=== PATIENT | male | born 1980 | race Two or more races ===

== ENCOUNTER 2024-05-30 10:22 | Inpatient (IN) | payer OTHER ==
[~2024-05-30] VITALS: Ht 182.9 cm; Wt 106.6 kg
[~2024-05-30 10:22] MED LIST: IBUPROFEN800 MG PO
[2024-05-30] MEDS ORDERED: RINGERS SOLUTION,LACTATED 1,000 ML IV STA (12:26)
[2024-05-30] MEDS ORDERED: MORPHINE SULFATE 4 MG/ML VIAL IV STA (12:29)
[2024-05-30 13:09] LABS: HEMOGLOBIN 15.5 g/dL (13-16.00); MEAN CORPUSCULAR HEMOGLOBIN 31.7 pg (27.00-32.0); MEAN CORPUSCULAR HGB CONC 35.2 g/dl (32.0-36.0); PLATELET COUNT 383 K/uL (150-450); RED CELL DISTRIBUTION WIDTH 12.7 % (11.5-14.5)
[2024-05-30 14:16] LABS: ALBUMIN 3.4 gm/dL (3.4-5.0); BILIRUBIN TOTAL 0.9 mg/dL (0.3-1.2); BILIRUBIN,CONJUGATED 0.27 mg/dL (0.0-0.2); BILIRUBIN,UNCONJUGATED 0.63 mg/dL (0.0-0.6); CALCIUM 9.2 mg/dL (8.5-10.1); CREATININE SERUM 1.14 mg/dL (0.70-1.30); GFR 70.11; POTASSIUM 3.64 mEq/L (3.5-5.1); TOTAL PROTEIN 8.3 gm/dL (6.4-8.2)
[2024-05-30] MEDS ORDERED: CIPROFLOXACIN IN 5 % DEXTROSE 400 MG/200 ML PIGGYBAG IV ONE (16:20)
[2024-05-30] MEDS ORDERED: METRONIDAZOLE/SODIUM CHLORIDE 500 MG/100 ML PIGGYBACK IV ONE ×2 (16:20→16:45)
[2024-05-30] MEDS ORDERED: CIPROFLOXACIN IN 5 % DEXTROSE 400 MG/200 ML PIGGYBAG IV SCH (17:00)
[2024-05-30] MEDS ORDERED: METROnidazole 500 MG TABLET PO SCH (17:00)
[2024-05-30] MEDS ORDERED: DEXTROSE 5 % AND 0.9 % NACL 1,000 ML IV SCH (17:15)
[2024-05-30] MEDS ORDERED: hydrALAZINE HCL 20 MG VIAL IV PRN (17:30)
[2024-05-30] MEDS ORDERED: ACETAMINOPHEN 500 MG GEL..CAP PO PRN (17:30)
[2024-05-30] MEDS ORDERED: ONDANSETRON HCL 4 MG in 0.9 % SODIUM CHLORIDE 50 ML IV PRN (17:30)
[2024-05-30] MEDS ORDERED: PIPERACILLIN/TAZOBACTAM SODIUM 3.375 GM VIAL IV ONE ×2 (17:39→23:34)
[2024-05-30] MEDS ORDERED: MEPERIDINE HCL 25 MG/ML AMPUL IM SCH (18:00)
[2024-05-30] MEDS ORDERED: PIPERACILLIN/TAZOBACTAM SODIUM 3.375 GM in 0.9 % SODIUM CHLORIDE 100 ML IV SCH (18:00)
[2024-05-30] MEDS ORDERED: FAMOTIDINE/PF 20 MG in 0.9 % SODIUM CHLORIDE 8 ML IV PUSH SCH (21:00)
[2024-05-30 21:51] LABS: PH,URINE 5.5 (5.0-8.0); URINE APPEARANCE Clear; URINE BILIRRUBIN Negative (NEGATIVE); URINE BLOOD Negative; URINE COLOR Yellow; URINE GLUCOSE Negative (NEGATIVE); URINE KETONE Negative (NEGATIVE); URINE LEUKOCYTE Negative; URINE NITRATE Negative; URINE PROTEIN Negative (NEGATIVE)
[2024-05-30 21:55] LABS: URINE BACTERIA 6.2 uL (0.0-1933)
[2024-05-30 22:05] LABS: URINE WBC 1.6 uL (0.0-23.2)
[2024-05-31 00:15] VITALS: BP 116/63; O2SAT 100
[2024-05-31] MEDS ORDERED: PIPERACILLIN/TAZOBACTAM SODIUM 3.375 GM VIAL IV ONE ×2 (05:13→06:59)
[2024-05-31 07:39] LABS: HEMOGLOBIN 14.2 g/dL (13-16.00); MEAN CELL VOLUME 90.2 fL (80.0-100.00); MEAN CORPUSCULAR HGB CONC 35.5 g/dl (32.0-36.0); PLATELET COUNT 346 K/uL (150-450); RED BLOOD COUNT 4.44 M/uL (4.00-6.00); RED CELL DISTRIBUTION WIDTH 12.4 % (11.5-14.5)
[2024-05-31 07:41] LABS: INR 1.18; PARTIAL THROMBOPLASTIN TIME 29.6 SECONDS (22.0-34.0); PROTHROMBIN TIME 12.7 SECONDS (9.0-11.5)
[2024-05-31 07:42] LABS: ALBUMIN 2.9 gm/dL (3.4-5.0); BILIRUBIN TOTAL 0.56 mg/dL (0.3-1.2); BILIRUBIN,CONJUGATED 0.19 mg/dL (0.0-0.2); BILIRUBIN,UNCONJUGATED 0.37 mg/dL (0.0-0.6); CALCIUM 8.3 mg/dL (8.5-10.1); CHOL HDL RATIO 6.5 (0-5.0); CREATININE SERUM 1.11 mg/dL (0.70-1.30); GFR 72.3; GLOBULINA 3.3 G/DL (2.4-3.5); POTASSIUM 3.95 mEq/L (3.5-5.1); TOTAL PROTEIN 6.2 gm/dL (6.4-8.2)
[2024-05-31 07:48] LABS: C-REACTIVE PROTEIN 11.5 MG/DL (0.00-0.29)
[2024-05-31 07:57] LABS: ERYTHROCYTE SEDIMENTATION RATE 90 mm/hr
[2024-05-31 08:18] VITALS: BP 105/73; O2SAT 95
[2024-05-31] MEDS ORDERED: MIDAZOLAM HCL 2 MG/2 ML VIAL IV PUSH NR (11:45)
[2024-05-31] MEDS ORDERED: fentaNYL CITRATE 50 MCG/ML AMPUL IV PUSH NR ×2 (11:45→12:45)
[2024-05-31 16:00] VITALS: BP 123/61; O2SAT 95
[2024-05-31 16:03] VITALS: BP 125/73; O2SAT 98
[2024-05-31 23:55] LABS: PH,URINE 7.5 (5.0-8.0); URINE APPEARANCE Clear; URINE BILIRRUBIN Negative (NEGATIVE); URINE BLOOD Negative; URINE COLOR Yellow; URINE GLUCOSE Negative (NEGATIVE); URINE KETONE Negative (NEGATIVE); URINE LEUKOCYTE Negative; URINE NITRATE Negative; URINE PROTEIN Negative (NEGATIVE)
[2024-06-01] LABS: URINE BACTERIA 0 uL (0.0-1933); URINE CAST 0.15 uL (0.0-1.40); URINE RBC 1.9 uL (0.0-20.8); URINE WBC 0.3 uL (0.0-23.2)
[2024-06-01 00:30] VITALS: BP 106/54; O2SAT 100
[2024-06-01 08:09] VITALS: BP 105/69; O2SAT 95
[2024-06-01] MEDS ORDERED: KETOROLAC TROMETHAMINE 30 MG VIAL IV PRN ×2 (11:00→12:30)
[2024-06-01] MEDS ORDERED: OxyCODONE HCL/APAP UD (PERCOCET) PO PRN (12:00)
[2024-06-01 16:00] VITALS: BP 120/66; O2SAT 96
[2024-06-01] MEDS ORDERED: FAMOTIDINE/PF 20 MG/2 ML VIAL IV SCH (17:00)
[2024-06-01] MEDS ORDERED: 0.9 % SODIUM CHLORIDE 10 ML VIAL IJ ONE (18:33)
[2024-06-02 00:54] VITALS: BP 113/63; O2SAT 100
[2024-06-02 08:00] VITALS: BP 103/64; O2SAT 100
[2024-06-02] MEDS ORDERED: CIPROFLOXACIN IN 5 % DEXTROSE 400 MG/200 ML PIGGYBAG IV SCH (17:00)
[2024-06-02 17:08] VITALS: BP 109/76; O2SAT 98
[2024-06-02] MEDS ORDERED: PIPERACILLIN/TAZOBACTAM SODIUM 3.375 GM in 0.9 % SODIUM CHLORIDE 100 ML IV SCH (18:00)
[2024-06-03] VITALS: BP 92/66; O2SAT 96
[2024-06-03 08:00] VITALS: BP 97/66; O2SAT 97
[2024-06-03 08:29] LABS: HEMATOCRIT 40.6 % (39.0-48.0); HEMOGLOBIN 14.5 g/dL (13-16.00); MEAN CELL VOLUME 89.1 fL (80.0-100.00); MEAN CORPUSCULAR HEMOGLOBIN 31.8 pg (27.00-32.0); MEAN CORPUSCULAR HGB CONC 35.7 g/dl (32.0-36.0); PLATELET COUNT 383 K/uL (150-450); RED BLOOD COUNT 4.55 M/uL (4.00-6.00); RED CELL DISTRIBUTION WIDTH 12.7 % (11.5-14.5)
[2024-06-03 09:17] LABS: BILIRUBIN TOTAL 0.62 mg/dL (0.3-1.2); CALCIUM 8.6 mg/dL (8.5-10.1); CREATININE SERUM 1.15 mg/dL (0.70-1.30); GFR 69.41; GLOBULINA 3.1 G/DL (2.4-3.5); POTASSIUM 4.06 mEq/L (3.5-5.1); TOTAL PROTEIN 6.1 gm/dL (6.4-8.2)
[2024-06-03 15:00] VITALS: BP 117/72; O2SAT 100
[2024-06-04 01:04] VITALS: BP 97/61; O2SAT 97
[2024-06-04 08:28] VITALS: BP 105/71; O2SAT 96
[2024-06-04 17:05] VITALS: BP 104/74; O2SAT 96
[2024-06-04] MEDS ORDERED: IOVERSOL 320 MG/ML - 50 ML VIAL IV ONE ×2 (21:37→23:00)
[2024-06-05 01:26] VITALS: BP 120/82; O2SAT 100
[2024-06-05 07:19] LABS: HEMATOCRIT 41.4 % (39.0-48.0); HEMOGLOBIN 14.8 g/dL (13-16.00); MEAN CELL VOLUME 89.1 fL (80.0-100.00); MEAN CORPUSCULAR HEMOGLOBIN 31.8 pg (27.00-32.0); MEAN CORPUSCULAR HGB CONC 35.7 g/dl (32.0-36.0); PLATELET COUNT 441 K/uL (150-450); RED BLOOD COUNT 4.64 M/uL (4.00-6.00); RED CELL DISTRIBUTION WIDTH 12.6 % (11.5-14.5)
[2024-06-05 08:00] VITALS: BP 166/78; O2SAT 97
[2024-06-05 08:13] LABS: ALBUMIN 3.1 gm/dL (3.4-5.0); BILIRUBIN TOTAL 0.83 mg/dL (0.3-1.2); CALCIUM 8.9 mg/dL (8.5-10.1); CREATININE SERUM 1.16 mg/dL (0.70-1.30); GFR 68.72; GLOBULINA 3.1 G/DL (2.4-3.5); POTASSIUM 4.7 mEq/L (3.5-5.1); TOTAL PROTEIN 6.2 gm/dL (6.4-8.2)
[2024-06-05 15:39] VITALS: BP 99/62; O2SAT 96
[2024-06-06 01:19] VITALS: BP 98/66; O2SAT 94
[2024-06-06 08:00] VITALS: BP 119/66; O2SAT 99
[2024-06-06 16:20] VITALS: BP 105/68; O2SAT 97
[2024-06-07 00:25] VITALS: BP 128/70; O2SAT 98
[2024-06-07] MEDS ORDERED: SODIUM CL 0.9% 100 ML IV.SOLN IV ONE (08:24)
[2024-06-07] MEDS ORDERED: AMOX1TAB5 PO (10:38)
== END 2024-06-07 13:00 | disposition home or self-care (01) | DRG 356 ==
LOC: ER 10:23 → SURG 18:08
PROVIDERS: General Practice; Radiology Vascular & Interventional Radiology; ADMIT Internal Medicine; ATTEND Internal Medicine
PROC: 0H97X0Z Drainage of Abdomen Skin with Drainage Device, External Approach (ICD-10-PCS; 2024-05-30)
PROC: BW21ZZZ Computerized Tomography (CT Scan) of Abdomen and Pelvis (ICD-10-PCS; 2024-05-30)
PROC: BW21YZZ Computerized Tomography (CT Scan) of Abdomen and Pelvis using Other Contrast (ICD-10-PCS; 2024-06-03)
PROC: 0WW Anatomical Regions, General, Revision (ICD-10-PCS; principal; 2024-06-04 22:00)
DX: K57.80 Diverticulitis of intestine, part unspecified, with perforation and abscess without bleeding (principal); A41.9 Sepsis, unspecified organism; K65.1 Peritoneal abscess; B96.20 Unspecified Escherichia coli [E. coli] as the cause of diseases classified elsewhere; D72.829 Elevated white blood cell count, unspecified

== ENCOUNTER 2024-07-10 09:20 | Inpatient (IN) | payer OTHER ==
[~2024-07-10] VITALS: Ht 182.9 cm; Wt 101.2 kg
[~2024-07-10 09:20] MED LIST changes: +AMOX1TAB5 PO
[2024-07-10 10:28] VITALS: BP 143/88
[2024-07-17] MEDS ORDERED: BUPIVACAINE HCL/PF 0.25% 50 ML VIAL IJ ONE (09:30)
[2024-07-17] MEDS ORDERED: LIDOCAINE HCL 1%/EPINEPHRINE 20ML VIAL IJ ONE (09:30)
[2024-07-17] MEDS ORDERED: CEFTRIAXONE SODIUM 2,000 MG VIAL IV ONE (09:30)
[2024-07-17] MEDS ORDERED: METRONIDAZOLE/SODIUM CHLORIDE 500 MG/100 ML PIGGYBACK IV ONE (09:30)
[2024-07-17] MEDS ORDERED: SUGAMMADEX SODIUM 200 MG/2 ML VIAL IV ONE (10:30)
[2024-07-17] MEDS ORDERED: OxyCODONE HCL 5 MG TABLET (ROXICODONE) PO PRN (11:00)
[2024-07-17] MEDS ORDERED: 0.9 % SODIUM CHLORIDE 1,000 ML IV SCH (11:00)
[2024-07-17] MEDS ORDERED: ONDANSETRON HCL 2 MG/ML VIAL IV PRN (11:00)
[2024-07-17] MEDS ORDERED: DEXTROSE 50 % IN WATER 0.5 G/ML DISP.SYRIN IV PRN (11:00)
[2024-07-17] MEDS ORDERED: MORPHINE SULFATE 4 MG/ML CARTRIDGE IV PRN (11:00)
[2024-07-17] MEDS ORDERED: MORPHINE SULFATE 4 MG/ML VIAL IV ONE ×3 (12:10→13:50)
[2024-07-17 12:28] LABS: HEMATOCRIT 44.1 % (39.0-48.0); HEMOGLOBIN 15.6 g/dL (13-16.00); MEAN CELL VOLUME 89.5 fL (80.0-100.00); MEAN CORPUSCULAR HEMOGLOBIN 31.6 pg (27.00-32.0); MEAN CORPUSCULAR HGB CONC 35.3 g/dl (32.0-36.0); PLATELET COUNT 253 K/uL (150-450); RED BLOOD COUNT 4.93 M/uL (4.00-6.00); RED CELL DISTRIBUTION WIDTH 13.3 % (11.5-14.5)
[2024-07-17] MEDS ORDERED: HYOSCYAMINE SULFATE 0.125 MG TAB.SUBL SL SCH (13:00)
[2024-07-17 13:14] LABS: ALBUMIN 3.7 gm/dL (3.4-5.0); CALCIUM 8.6 mg/dL (8.5-10.1); CREATININE SERUM 0.97 mg/dL (0.70-1.30); GFR 84.47; MAGNESIUM 2.1 mg/dL (1.8-2.4); PHOSPHOROUS 3.3 mg/dL (2.5-4.9); POTASSIUM 4.35 mEq/L (3.5-5.1)
[2024-07-17] MEDS ORDERED: ONDANSETRON HCL 2 MG/ML VIAL IV ONE (13:35)
[2024-07-17] MEDS ORDERED: ACETAMINOPHEN 500 MG GEL..CAP PO SCH (14:00)
[2024-07-17] MEDS ORDERED: POLYETHYLENE GLYCOL 3350 17 GM BLIST.PACK PO SCH (17:00)
[2024-07-17] MEDS ORDERED: METRONIDAZOLE/SODIUM CHLORIDE 500 MG/100 ML PIGGYBACK IV SCH (17:00)
[2024-07-17] MEDS ORDERED: GABAPENTIN 300 MG CAPSULE PO SCH (17:00)
[2024-07-17] MEDS ORDERED: FAMOTIDINE/PF 20 MG/2 ML VIAL IV PUSH SCH (21:00)
[2024-07-17] MEDS ORDERED: CELECOXIB 200 MG CAPSULE PO SCH (21:00)
[2024-07-18 00:47] VITALS: BP 119/76; O2SAT 97
[2024-07-18 07:44] LABS: HEMATOCRIT 41.2 % (39.0-48.0); MEAN CELL VOLUME 88.2 fL (80.0-100.00); MEAN CORPUSCULAR HEMOGLOBIN 32.1 pg (27.00-32.0); MEAN CORPUSCULAR HGB CONC 36.4 g/dl (32.0-36.0); PLATELET COUNT 244 K/uL (150-450); RED BLOOD COUNT 4.68 M/uL (4.00-6.00); RED CELL DISTRIBUTION WIDTH 13.5 % (11.5-14.5)
[2024-07-18 07:52] LABS: ALBUMIN 3.2 gm/dL (3.4-5.0); CALCIUM 8.2 mg/dL (8.5-10.1); CREATININE SERUM 0.71 mg/dL (0.70-1.30); GFR 121.08; MAGNESIUM 2.1 mg/dL (1.8-2.4); PHOSPHOROUS 2.9 mg/dL (2.5-4.9); POTASSIUM 4.1 mEq/L (3.5-5.1)
[2024-07-18 08:50] VITALS: BP 124/71; O2SAT 100
[2024-07-18 17:00] VITALS: BP 117/73; O2SAT 98
[2024-07-18] MEDS ORDERED: ENOXAPARIN SODIUM 40 MG/0.4 ML SYRINGE SUBCUTANEO SCH (17:00)
[2024-07-18] MEDS ORDERED: GABAPENTIN 100 MG CAPSULE PO SCH (17:00)
[2024-07-18] MEDS ORDERED: GABAPENTIN 300 MG CAPSULE PO SCH (21:00)
[2024-07-19 00:38] VITALS: BP 111/64; O2SAT 98
[2024-07-19 08:00] VITALS: BP 126/73; O2SAT 98
[2024-07-19 08:07] LABS: HEMATOCRIT 40.6 % (39.0-48.0); HEMOGLOBIN 14.5 g/dL (13-16.00); MEAN CELL VOLUME 88.9 fL (80.0-100.00); MEAN CORPUSCULAR HEMOGLOBIN 31.8 pg (27.00-32.0); MEAN CORPUSCULAR HGB CONC 35.8 g/dl (32.0-36.0); PLATELET COUNT 219 K/uL (150-450); RED BLOOD COUNT 4.57 M/uL (4.00-6.00); RED CELL DISTRIBUTION WIDTH 13.4 % (11.5-14.5)
[2024-07-19 08:43] LABS: CALCIUM 8.7 mg/dL (8.5-10.1); CREATININE SERUM 0.72 mg/dL (0.70-1.30); GFR 119.15; MAGNESIUM 2.1 mg/dL (1.8-2.4); PHOSPHOROUS 2.3 mg/dL (2.5-4.9); POTASSIUM 3.88 mEq/L (3.5-5.1)
[2024-07-19] MEDS ORDERED: ENOXAPARIN SODIUM 40 MG/0.4 ML SYRINGE SUBCUTANEO SCH (09:00)
[2024-07-19] MEDS ORDERED: POTASSIUM PHOS,M-BASIC-D-BASIC 3 MM/ML VIAL IV NR (09:00)
[2024-07-19] MEDS ORDERED: LIDOCAINE 5% 1 PATCH ADH. TOP SCH (11:15)
[2024-07-19 16:35] VITALS: BP 114/71; O2SAT 99
[2024-07-20 00:05] VITALS: BP 101/68; O2SAT 97
[2024-07-20 08:18] VITALS: BP 112/77; O2SAT 99
[2024-07-20] MEDS ORDERED: HYOSCYAMINE0.125 M1 SL (10:20)
[2024-07-20] MEDS ORDERED: GABAPENTIN100 MG PO (10:20)
[2024-07-20] MEDS ORDERED: INTESTINEX680 M1 PO (10:21)
[2024-07-20] MEDS ORDERED: CELECOXIB200 MG PO (10:21)
== END 2024-07-20 11:36 | disposition home or self-care (01) | DRG 330 ==
LOC: O/R 07-17 05:26 → SURH 07-17 09:45
PROVIDERS: Internal Medicine Geriatric Medicine; ADMIT Surgery; ATTEND Surgery
PROC: 0DBP4ZZ Excision of Rectum, Percutaneous Endoscopic Approach (ICD-10-PCS; 2024-07-17)
PROC: 0DJ08ZZ Inspection of Upper Intestinal Tract, Via Natural or Artificial Opening Endoscopic (ICD-10-PCS; 2024-07-17)
PROC: 0DQ80ZZ Repair Small Intestine, Open Approach (ICD-10-PCS; 2024-07-17)
PROC: 0DTN4ZZ Resection of Sigmoid Colon, Percutaneous Endoscopic Approach (ICD-10-PCS; principal; 2024-07-17 16:30)
DX: K57.20 Diverticulitis of large intestine with perforation and abscess without bleeding (principal); K63.2 Fistula of intestine

== ENCOUNTER 2024-07-23 14:24 | Inpatient (IN) | payer OTHER ==
[~2024-07-23] VITALS: Ht 182.9 cm; Wt 99.3 kg
[~2024-07-23 14:24] MED LIST changes: +CELECOXIB200 MG PO; +GABAPENTIN100 MG PO; +HYOSCYAMINE0.125 M1 SL; +INTESTINEX680 M1 PO
--- NOTE | 2024-07-23 14:49 | NUR ---
SE RECIBE PTE ALERTA Y ROIENTADO X3 EN COMPANIA DE FAMILIAR Y PARAMEDICOS EL MISMO REFIERE QUE FUE OPERADO POR EL DR. ANA ALCALA DEL INTESTINO EL JUVES Y ESTA PRESENTANDO FIEBRE, MAREO Y NAUSEA. TEMPERATURA 99.0 AL MOMENTO DEL TRIAGE. SE REALIZA EKG Y SE PRESENTA A DR. MEZA EL CUAL EVALUA Y FIRMA EL MISMO.
--- NOTE | 2024-07-23 16:10 | NUR ---
PTE ALERTA Y ORIENTADO X3 ES EVALUADO POR EL DR. MEZA. RN G CHAVEZ CANALIZA Y DONTRELL MUESTRAS DE LAB RANDY ORDEN MEDICA BAJO MEDIDAS ASEPTICAS. SE NOTIFICA XRAY Y CT PENDIENTE.
[2024-07-23 16:49] LABS: URINE APPEARANCE Clear; URINE BILIRRUBIN Negative (NEGATIVE); URINE BLOOD Negative; URINE COLOR Yellow; URINE GLUCOSE Negative (NEGATIVE); URINE KETONE Negative (NEGATIVE); URINE LEUKOCYTE Trace; URINE NITRATE Negative; URINE PROTEIN Negative (NEGATIVE)
[2024-07-23 16:55] LABS: HEMATOCRIT 41.2 % (39.0-48.0); HEMOGLOBIN 14.9 g/dL (13-16.00); MEAN CORPUSCULAR HEMOGLOBIN 31.9 pg (27.00-32.0); MEAN CORPUSCULAR HGB CONC 36.2 g/dl (32.0-36.0); PLATELET COUNT 309 K/uL (150-450); RED BLOOD COUNT 4.68 M/uL (4.00-6.00); RED CELL DISTRIBUTION WIDTH 13.3 % (11.5-14.5)
[2024-07-23 17:05] LABS: URINE EPITHELIAL CELLS 0.3 uL (0.0-38.8); URINE RBC 0.7 uL (0.0-20.8)
[2024-07-23 17:12] LABS: ALBUMIN 3.9 gm/dL (3.4-5.0); BILIRUBIN TOTAL 0.83 mg/dL (0.3-1.2); BILIRUBIN,CONJUGATED 0.22 mg/dL (0.0-0.2); BILIRUBIN,UNCONJUGATED 0.61 mg/dL (0.0-0.6); CALCIUM 9.7 mg/dL (8.5-10.1); CREATININE SERUM 0.98 mg/dL (0.70-1.30); GFR 83.48; POTASSIUM 3.66 mEq/L (3.5-5.1); TOTAL PROTEIN 7.9 gm/dL (6.4-8.2)
[2024-07-23] MEDS ORDERED: ACETAMINOPHEN 500 MG GEL..CAP PO ONE (18:00)
[2024-07-23] MEDS ORDERED: 0.9 % SODIUM CHLORIDE 1,000 ML IV SCH ×2 (18:00→22:15)
[2024-07-23] MEDS ORDERED: PIPERACILLIN/TAZOBACTAM SODIUM 3.375 GM in 0.9 % SODIUM CHLORIDE 100 ML IV SCH (20:14)
[2024-07-23] MEDS ORDERED: ENOXAPARIN SODIUM 40 MG/0.4 ML SYRINGE SUBCUTANEO SCH (20:55)
[2024-07-23] MEDS ORDERED: FAMOTIDINE/PF 20 MG/2 ML VIAL IV SCH (21:00)
[2024-07-23] MEDS ORDERED: TRAMADOL HCL 50 MG TABLET PO PRN (21:00)
[2024-07-23] MEDS ORDERED: ONDANSETRON HCL 2 MG/ML VIAL IV PRN (21:00)
[2024-07-24 02:31] VITALS: BP 110/78
[2024-07-24 06:11] LABS: HEMATOCRIT 39.1 % (39.0-48.0); HEMOGLOBIN 14.1 g/dL (13-16.00); MEAN CELL VOLUME 88.5 fL (80.0-100.00); MEAN CORPUSCULAR HEMOGLOBIN 31.9 pg (27.00-32.0); PLATELET COUNT 254 K/uL (150-450); RED BLOOD COUNT 4.41 M/uL (4.00-6.00); RED CELL DISTRIBUTION WIDTH 12.8 % (11.5-14.5)
[2024-07-24 06:54] LABS: ALBUMIN 3.3 gm/dL (3.4-5.0); BILIRUBIN TOTAL 0.85 mg/dL (0.3-1.2); CALCIUM 8.5 mg/dL (8.5-10.1); CREATININE SERUM 0.93 mg/dL (0.70-1.30); GFR 88.68; GLOBULINA 2.8 G/DL (2.4-3.5); PHOSPHOROUS 3.4 mg/dL (2.5-4.9); POTASSIUM 3.79 mEq/L (3.5-5.1); TOTAL PROTEIN 6.1 gm/dL (6.4-8.2)
[2024-07-24 07:10] LABS: INR 1.15; PROTHROMBIN TIME 12.4 SECONDS (9.0-11.5)
[2024-07-24 07:40] LABS: PARTIAL THROMBOPLASTIN TIME 32.1 SECONDS (22.0-34.0)
[2024-07-24 09:56] VITALS: BP 124/67; O2SAT 100
[2024-07-24] MEDS ORDERED: fentaNYL CITRATE 50 MCG/ML AMPUL IV PUSH ONE (17:45)
[2024-07-24] MEDS ORDERED: MIDAZOLAM HCL 2 MG/2 ML VIAL IV PUSH ONE (17:45)
[2024-07-24 19:48] VITALS: BP 126/68; O2SAT 98
[2024-07-25 03:10] VITALS: BP 105/72; O2SAT 95
[2024-07-25 10:05] LABS: MEAN CORPUSCULAR HEMOGLOBIN 31.3 pg (27.00-32.0); MEAN CORPUSCULAR HGB CONC 35.2 g/dl (32.0-36.0); PLATELET COUNT 210 K/uL (150-450); RED BLOOD COUNT 4.15 M/uL (4.00-6.00); RED CELL DISTRIBUTION WIDTH 12.8 % (11.5-14.5)
[2024-07-25 10:19] VITALS: BP 112/73; O2SAT 98
[2024-07-25] MEDS ORDERED: LACTOBACILLUS ACIDOPHILUS 1 CAP CAP PO SCH (12:16)
[2024-07-25 17:31] VITALS: BP 107/68; O2SAT 99
[2024-07-26 00:15] VITALS: BP 102/70; O2SAT 99
[2024-07-26 09:54] LABS: HEMATOCRIT 36.9 % (39.0-48.0); HEMOGLOBIN 13.3 g/dL (13-16.00); MEAN CELL VOLUME 87.6 fL (80.0-100.00); MEAN CORPUSCULAR HEMOGLOBIN 31.5 pg (27.00-32.0); MEAN CORPUSCULAR HGB CONC 35.9 g/dl (32.0-36.0); PLATELET COUNT 200 K/uL (150-450); RED BLOOD COUNT 4.21 M/uL (4.00-6.00); RED CELL DISTRIBUTION WIDTH 13.2 % (11.5-14.5)
[2024-07-26 10:18] VITALS: BP 95/66; O2SAT 98
[2024-07-26 10:25] LABS: ALBUMIN 3.1 gm/dL (3.4-5.0); CREATININE SERUM 1.01 mg/dL (0.70-1.30); GFR 80.62; MAGNESIUM 2.1 mg/dL (1.8-2.4); PHOSPHOROUS 3.4 mg/dL (2.5-4.9); POTASSIUM 4.05 mEq/L (3.5-5.1)
[2024-07-26 16:00] VITALS: BP 103/69; O2SAT 98
[2024-07-26] MEDS ORDERED: CLOTRIMAZOLE 10 MG TROCHE MM SCH (17:02)
[2024-07-26] MEDS ORDERED: PROMETHAZINE HCL 25 MG/ML AMPUL IV ONE (20:45)
[2024-07-27 00:39] VITALS: BP 109/57; O2SAT 97
[2024-07-27 08:19] LABS: HEMATOCRIT 36.2 % (39.0-48.0); HEMOGLOBIN 13.2 g/dL (13-16.00); MEAN CELL VOLUME 86.8 fL (80.0-100.00); MEAN CORPUSCULAR HEMOGLOBIN 31.7 pg (27.00-32.0); MEAN CORPUSCULAR HGB CONC 36.6 g/dl (32.0-36.0); PLATELET COUNT 170 K/uL (150-450); RED BLOOD COUNT 4.17 M/uL (4.00-6.00)
[2024-07-27 08:46] VITALS: BP 100/59; O2SAT 100
[2024-07-27] MEDS ORDERED: CHOLESTYRAMINE/ASPARTAME LIGHT 4 G/PKT PACKET PO SCH (17:00)
[2024-07-27 18:49] VITALS: BP 107/62; O2SAT 99
[2024-07-28 00:51] VITALS: BP 102/63; O2SAT 100
[2024-07-28 08:00] VITALS: BP 98/57; O2SAT 98
[2024-07-28] MEDS ORDERED: levoFLOXacin IN DEXTROSE 5 % 5 MG/ML PIGGYBAG IV SCH (17:14)
[2024-07-28 17:31] VITALS: BP 111/62; O2SAT 98
[2024-07-28] MEDS ORDERED: FAMOtidine 20 MG TABLET PO SCH (21:00)
[2024-07-29 00:45] VITALS: BP 106/75; O2SAT 100
[2024-07-29] MEDS ORDERED: METROnidazole 500 MG TABLET PO SCH (01:00)
[2024-07-29 08:05] LABS: HEMATOCRIT 40.8 % (39.0-48.0); HEMOGLOBIN 14.5 g/dL (13-16.00); MEAN CELL VOLUME 87.6 fL (80.0-100.00); MEAN CORPUSCULAR HEMOGLOBIN 31.1 pg (27.00-32.0); MEAN CORPUSCULAR HGB CONC 35.4 g/dl (32.0-36.0); RED BLOOD COUNT 4.65 M/uL (4.00-6.00)
[2024-07-29 08:15] LABS: PLATELET COUNT 119 K/uL (150-450)
[2024-07-29 08:43] LABS: CALCIUM 8.2 mg/dL (8.5-10.1); CREATININE SERUM 0.78 mg/dL (0.70-1.30); GFR 108.63; MAGNESIUM 2.2 mg/dL (1.8-2.4); PHOSPHOROUS 2.4 mg/dL (2.5-4.9); POTASSIUM 4.18 mEq/L (3.5-5.1)
[2024-07-29 08:48] LABS: C-REACTIVE PROTEIN 1.12 MG/DL (0.00-0.29)
[2024-07-29] MEDS ORDERED: POTASSIUM PHOS,M-BASIC-D-BASIC 3 MM/ML VIAL IV NR (09:15)
[2024-07-29 09:41] VITALS: BP 135/64; O2SAT 97
[2024-07-29] MEDS ORDERED: DIATRIZOATE MEGLUMINE, SODIUM 30 ML BOTTLE PO NR (14:00)
[2024-07-29 17:07] VITALS: BP 158/74; O2SAT 98
[2024-07-29 23:30] VITALS: BP 91/54; O2SAT 99
[2024-07-30 07:27] LABS: MANUAL PLATELET COUNT 182
[2024-07-30 07:28] LABS: PLATELET ESTIMATE NORMAL (NORMAL)
[2024-07-30 08:00] VITALS: BP 109/701; O2SAT 99
[2024-07-30 08:17] LABS: HEMATOCRIT 38.8 % (39.0-48.0); HEMOGLOBIN 13.6 g/dL (13-16.00); MEAN CELL VOLUME 87.8 fL (80.0-100.00); MEAN CORPUSCULAR HEMOGLOBIN 30.8 pg (27.00-32.0); MEAN CORPUSCULAR HGB CONC 35.1 g/dl (32.0-36.0); PLATELET COUNT 144 K/uL (150-450); RED BLOOD COUNT 4.42 M/uL (4.00-6.00)
[2024-07-30 09:21] LABS: ALBUMIN 3.2 gm/dL (3.4-5.0); BILIRUBIN TOTAL 0.87 mg/dL (0.3-1.2); CALCIUM 8.5 mg/dL (8.5-10.1); CREATININE SERUM 0.66 mg/dL (0.70-1.30); GFR 131.73; GLOBULINA 2.8 G/DL (2.4-3.5); POTASSIUM 3.98 mEq/L (3.5-5.1)
[2024-07-30 17:25] VITALS: BP 100/65; O2SAT 99
[2024-07-31] VITALS: BP 103/66; O2SAT 100
[2024-07-31] MEDS ORDERED: ONDANSETRON HCL 2 MG/ML VIAL IV PRN (05:00)
[2024-07-31 08:42] VITALS: BP 97/63; O2SAT 98
[2024-07-31] MEDS ORDERED: PEPCID AC20 MG PO (13:31)
[2024-07-31] MEDS ORDERED: INTESTINEX680 M1 PO (13:31)
== END 2024-07-31 14:14 | disposition home or self-care (01) | DRG 872 ==
LOC: ER 14:24 → SURH 22:27
PROVIDERS: General Practice; Internal Medicine Geriatric Medicine; Specialist; Student in an Organized Health Care Education/Training Program; ADMIT Surgery; ATTEND Surgery
PROC: BW21YZZ Computerized Tomography (CT Scan) of Abdomen and Pelvis using Other Contrast (ICD-10-PCS; 2024-07-23)
PROC: 0W9F3ZZ Drainage of Abdominal Wall, Percutaneous Approach (ICD-10-PCS; principal; 2024-07-24)
PROC: BW21YZZ Computerized Tomography (CT Scan) of Abdomen and Pelvis using Other Contrast (ICD-10-PCS; 2024-07-29)
DX: A41.9 Sepsis, unspecified organism (principal); K57.92 Diverticulitis of intestine, part unspecified, without perforation or abscess without bleeding; D69.6 Thrombocytopenia, unspecified; D72.819 Decreased white blood cell count, unspecified; F43.20 Adjustment disorder, unspecified; T14.8XXA Other injury of unspecified body region, initial encounter; R00.0 Tachycardia, unspecified; B37.9 Candidiasis, unspecified